=== PATIENT | male | born 1970 | race Hispanic/Latino ===

== ENCOUNTER 2017-03-30 13:31 | Outpatient (CLI) | payer OTHER ==
--- NOTE | 2017-03-30 15:09 | ULT ---
SCROTAL ULTRASOUND WITH DOPPLER: 03/30/2017 PROVIDED CLINICAL HISTORY: Scrotal pain. FINDINGS: The right testicle measures about 5.2 x 2.7 x 3.6 cm and demonstrates a normal Diaz scale sonographic appearance. There are right-sided epididymal cysts seen, the largest of which measures about 2.2 cm . The left testicle measures about 4.3 x 2 x 4 cm and demonstrates a normal Diaz scale sonographic appe arance. There are multiple cystic structures posterior and inferior to the left testicle, some of wh ich demonstrate internal echogenicity, suggesting debris. It is unclear whether this represents a co mplex hydrocele or multiple large epididymal cysts. The largest discrete, septated, cystic component measures at least 11.4 cm. Color Doppler and spectral analysis of the testicular wave-forms reveals normal flow bilaterally. IMPRESSION: Multiple cystic structures posterior and inferior to the left testicle, which may reflect a large com plex hydrocele or large epididymal cysts. POS: [facility]
== END 2017-03-30 13:32 | disposition home or self-care (01) ==
LOC: ULT 13:31
PROVIDERS: ATTEND Internal Medicine
DX: N50.89 Other specified disorders of the male genital organs (principal); N44.2 Benign cyst of testis
CPT/HCPCS: 76870; 93976

== ENCOUNTER 2021-10-29 12:38 | Outpatient (CLI) | payer OTHER | END 2021-10-29 12:39 | disposition home or self-care (01) | LOC: BICRAD 12:38 | PROVIDERS: ATTEND Internal Medicine | DX: M79.671 Pain in right foot (principal) ==

== ENCOUNTER 2025-02-01 10:59 | Outpatient (CLI) | payer OTHER ==
[2025-02-01 11:54] LABS: #Basophils 0.05 10x3/uL (0.0-0.2); #Eosinophils 0.03 10x3/uL (0.0-0.7); #Monocytes 0.50 10x3/uL (0.11-0.59); #Neutrophils 4.66 10x3/uL (1.40-6.50); %Basophils 0.7 % (0.0-1.0); %Eosinophils 0.4 % (0.0-10.0); %Lymphocytes 29.5 % (21.0-51.0); %Monocytes 6.7 % (0.0-10.0); %Neutrophils 62.3 % (42.0-75.0); Hematocrit 46.9 % (42.0-52.0); Hemoglobin 15.1 g/dL (14.0-18.0); Mean Corpuscular Hemoglobin 26.6 pg (27.0-31.0); Mean Corpuscular Volume 82.6 fL (78.0-98.0); Platelet Count 290 10x3/uL (130-400); Red Blood Cell (RBC) Count 5.68 mill/uL (4.70-6.10); White Blood Cell (WBC) Count 7.47 10x3/uL (4.8-10.8)
[2025-02-01 12:00] LABS: Bacteria/HPF None Seen HPF (None Seen); Glucose, Urine (Dipstick) Normal (Negative); Leukocyte Negative Leu/uL (Negative); Protein, Urine (Dipstick) Negative (Neg-Trace); RBC/HPF 0-3 HPF (0-3); Specific Gravity, Urine 1.025 (1.002-1.036); WBC/HPF 0-3 HPF (0-3)
[2025-02-01 12:13] LABS: INR-International Normal Ratio 1.0; PTT 27.3 sec (22.9-36.1); Prothrombin Time 13.0 sec (12.0-14.7)
[2025-02-01 12:21] LABS: Anion Gap 12 mmol/L (10-20); BUN (Urea Nitrogen) 15 mg/dL (8.4-25.7); Calc. Creatinine Clearance 0 mL/min (70-130); Calcium 9.1 mg/dL (7.8-10.44); Carbon Dioxide 28 mmol/L (22-29); Chloride 105 mmol/L (98-107); Glucose 86 mg/dL (70-105); Potassium 4.1 mmol/L (3.5-5.1); Sodium 141 mmol/L (136-145)
== END 2025-02-01 11:00 | disposition home or self-care (01) ==
LOC: LABBT 10:59
PROVIDERS: ATTEND Urology
DX: Z01.818 Encounter for other preprocedural examination (principal); N32.81 Overactive bladder; N52.9 Male erectile dysfunction, unspecified
CPT/HCPCS: 80048; 81001; 85025; 85610; 85730; 87086; 93005; 93010

== ENCOUNTER 2025-02-08 06:53 | Day surgery (SDC) | payer OTHER ==
[2025-02-01 11:19] VITALS: BMI 33.0
[2025-02-08] MEDS ORDERED: CEFAZOLIN 2 GM VIAL ONE (07:54)
[2025-02-08] MEDS ORDERED: Lidocaine 1% PF 5 ML VIAL ONE (08:13)
[2025-02-08] MEDS ORDERED: Ketorolac Tromethamine 30 MG (1 mL) VIAL ONE ×2 (08:24→10:44)
[2025-02-08] MEDS ORDERED: Bupivacaine 0.25% HCL 30 ML VIAL ONE (09:05)
[2025-02-08] MEDS ORDERED: Bacitracin Zinc Ointment 30 gm TUBE ONE (09:05)
[2025-02-08] MEDS ORDERED: fentaNYL PF 100 MCG/2 ML SYRINGE ONE (09:09)
[2025-02-08] MEDS ORDERED: PROPOFOL 200 MG/20 ML VIAL ONE (09:34)
[2025-02-08] MEDS ORDERED: Ondansetron PF 4 MG/2 ML Vial ONE (09:36)
[2025-02-08] MEDS ORDERED: PHENYLEPHRINE-NS 100 MCG/ML 10 ML SYRINGE ONE (09:47)
== END 2025-02-08 13:38 | disposition home or self-care (01) ==
LOC: SDC 06:53
PROVIDERS: ATTEND Urology
PROC: 0VBJ0ZZ Excision of Right Epididymis, Open Approach (ICD-10-PCS; principal; 2025-02-08)
DX: N43.40 Spermatocele of epididymis, unspecified (principal); N32.81 Overactive bladder; N52.9 Male erectile dysfunction, unspecified; N30.81 Other cystitis with hematuria; I10 Essential (primary) hypertension; E78.5 Hyperlipidemia, unspecified; Z86.16 Personal history of COVID-19; Z90.49 Acquired absence of other specified parts of digestive tract; Z87.891 Personal history of nicotine dependence; Z79.899 Other long term (current) drug therapy
CPT/HCPCS: 88304; J0665; J1100; J1885; J2405; J2704; J3010